=== PATIENT | female | born 1965 | race Caucasian/White ===

== ENCOUNTER 2018-01-30 07:56 | Outpatient (CLI) | payer BC | END 2018-01-30 07:57 | disposition home or self-care (01) | LOC: BICMAMMO 07:56 | PROVIDERS: ATTEND Family Medicine | DX: M81.0 Age-related osteoporosis without current pathological fracture (principal); M85.80 Other specified disorders of bone density and structure, unspecified site | CPT/HCPCS: 77080 ==

== ENCOUNTER 2019-06-18 08:03 | Outpatient (CLI) | payer BC ==
--- NOTE | 2019-06-18 10:09 | BD ---
DEXA BONE DENSITY EXAM: HISTORY: A 53-year-old postmenopausal female for screening. COMPARISON: 01/30/2018 FINDINGS: LUMBAR SPINE BMD (g/cm2) T-SCORE L1 0.829 -1.5 L2 0.864 -1.5 L3 0.906 -1.6 L4 0.790 -2.5 TOTAL L1-L4 0.849 -1.8 LEFT FEMORAL NECK 0.611 -2.1 TOTAL PROXIMAL LEFT FEMUR 0.694 -2.0 IMPRESSION: Osteopenia. This patient has a 10 year WHO fracture risk for a major osteoporotic fracture of 7.1% a nd for a hip fracture of 1.0%. POS: [facility]
== END 2019-06-18 08:04 | disposition home or self-care (01) ==
LOC: BICMAMMO 08:03
PROVIDERS: ATTEND Family Medicine
DX: Z13.820 Encounter for screening for osteoporosis (principal); M85.859 Other specified disorders of bone density and structure, unspecified thigh
CPT/HCPCS: 77080

== ENCOUNTER 2021-12-07 13:09 | Outpatient (CLI) | payer BC | END 2021-12-07 13:10 | disposition home or self-care (01) | LOC: BICRAD 13:09 | PROVIDERS: ATTEND Internal Medicine Rheumatology | DX: M81.0 Age-related osteoporosis without current pathological fracture (principal) | CPT/HCPCS: 72072 ==

== ENCOUNTER 2024-10-17 15:43 | Outpatient (CLI) | payer BC | END 2024-10-17 15:44 | disposition home or self-care (01) | LOC: BICRAD 15:43 | PROVIDERS: ATTEND Internal Medicine Rheumatology | DX: M25.561 Pain in right knee (principal) ==